=== PATIENT | female | born 1965 | race Caucasian/White ===

== ENCOUNTER 2024-10-10 16:10 | Emergency (ER) | payer BC ==
[2024-10-10 16:36] VITALS: BP 117/77; PULSE 90
[2024-10-10] MEDS: LORazepam 0.5 MG Tab PO ONE (16:36)
== END 2024-10-10 17:25 | disposition home or self-care (01) ==
LOC: KA.ED 16:10
DX: F41.9 Anxiety disorder, unspecified (principal); F99 Mental disorder, not otherwise specified; Z79.899 Other long term (current) drug therapy
CPT/HCPCS: 99284; A9270-GY